=== PATIENT | female | born 1955 | race Caucasian/White ===

== ENCOUNTER → 2020-04-18 | Outpatient (CLI) | payer MEDICARE, MEDICAID ==
[~2020-04-18] MED LIST: RT-ALBUTEROL SULF 2.5 MG/3 ML PRE-MIX VIAL INH ONE
--- NOTE | 2020-04-18 15:34 | Diagnostic Imaging Report ---
PROCEDURE: CT chest without contrast. TECHNIQUE: Multiple contiguous axial images were obtained through the chest without the use of intravenous contrast. Auto Exposure Controls were utilized during the CT exam to meet ALARA standards for radiation dose reduction. INDICATION: Dyspnea and restrictive lung disease, asthma There is significant elevation of the right hemidiaphragm. There is a large hiatal hernia. There is atelectasis and/or scarring in the right infrahilar region, minimal atelectasis and/or scarring is also seen in the medial aspect of both lower lobes as well as the lingula. There is no evidence of focal mass or infiltrate. There is no significant pleural or pericardial fluid. No pathologically enlarged adenopathy is identified. There is mild coronary artery atherosclerotic calcification. IMPRESSION: Loss of volume in the right lung related to elevated diaphragm with resultant atelectasis and/or scarring in the right perihilar region. There is also moderately large hiatal hernia with mild coronary artery disease present. Dictated by: Dictated on workstation # [id number]
== END ==
LOC: RT 15:30
PROVIDERS: ATTEND Nurse Practitioner Family
DX: I25.10 Atherosclerotic heart disease of native coronary artery without angina pectoris (principal); K44.9 Diaphragmatic hernia without obstruction or gangrene; J44.9 Chronic obstructive pulmonary disease, unspecified
CPT/HCPCS: 71250; 94060; 94726; 94729

== ENCOUNTER → 2020-04-20 | Outpatient (CLI) | payer MEDICARE, MEDICAID | LOC: LAB FS 10:00 | PROVIDERS: ATTEND Nurse Practitioner Family | DX: Z01.812 Encounter for preprocedural laboratory examination (principal); J98.4 Other disorders of lung; G47.61 Periodic limb movement disorder; G47.10 Hypersomnia, unspecified; Z20.828 Contact with and (suspected) exposure to other viral communicable diseases | CPT/HCPCS: 87635 ==

== ENCOUNTER 2020-04-24 19:24 | Outpatient (CLI) | payer MEDICARE, MEDICAID | END 2020-04-25 04:17 | disposition home or self-care (01) | LOC: SLEEP 19:24 | PROVIDERS: ATTEND Nurse Practitioner Family | DX: G47.10 Hypersomnia, unspecified (principal); G47.61 Periodic limb movement disorder | CPT/HCPCS: 95810 ==

== ENCOUNTER 2020-06-11 15:26 | Outpatient (CLI) | payer MEDICARE, MEDICAID ==
[2020-06-15] MEDS ORDERED: INHALER HHN (06:46)
[2020-06-15] MEDS ORDERED: TRET15GE TP (06:46)
== END 2020-06-11 16:10 | disposition home or self-care (01) ==
LOC: SLEEP 15:26
PROVIDERS: ATTEND Nurse Practitioner Family
DX: G47.30 Sleep apnea, unspecified (principal); G47.50 Parasomnia, unspecified; G47.10 Hypersomnia, unspecified; G47.36 Sleep related hypoventilation in conditions classified elsewhere
CPT/HCPCS: G0399

== ENCOUNTER → 2020-06-12 | Outpatient (CLI) | payer MEDICARE, MEDICAID ==
[2020-06-13 06:28] LABS: RAGWEED RAST <0.10 kU/L (0.00-0.09)
[2020-06-13 06:29] LABS: ALTERNARIA MOLD RAST <0.10 kU/L (0.00-0.09)
== END ==
LOC: LAB 14:25
PROVIDERS: ATTEND Nurse Practitioner
DX: J45.998 Other asthma (principal)
CPT/HCPCS: 36415; 86003

== ENCOUNTER 2020-06-14 05:49 | Outpatient (RCR) | payer MEDICARE, MEDICAID ==
[2020-06-15] MEDS ORDERED: INHALER HHN (06:46)
[2020-06-15] MEDS ORDERED: TRET15GE TP (06:46)
== END 2020-06-14 12:37 | disposition home or self-care (01) ==
LOC: PREOP 05:49
PROVIDERS: ATTEND Internal Medicine Critical Care Medicine
DX: Z01.818 Encounter for other preprocedural examination (principal)

== ENCOUNTER → 2020-06-18 | Outpatient (CLI) | payer MEDICARE, MEDICAID ==
[~2020-06-18] MED LIST changes: +INHALER HHN; -RT-ALBUTEROL SULF 2.5 MG/3 ML PRE-MIX VIAL INH ONE; +TRET15GE TP
== END ==
LOC: LAB FS 10:30
PROVIDERS: ATTEND Internal Medicine Critical Care Medicine
DX: Z01.812 Encounter for preprocedural laboratory examination (principal); Z20.822 Contact with and (suspected) exposure to COVID-19
CPT/HCPCS: 87635

== ENCOUNTER 2020-06-20 06:57 | Day surgery (SDC) | payer MEDICARE, MEDICAID ==
[~2020-06-20] VITALS: Ht 162.6 cm; Wt 92.0 kg
[2020-06-20] VITALS (8 sets, daily range): BP systolic 104–160; BP diastolic 71–97
[2020-06-20] MEDS ORDERED: LACTATED RINGERS 1,000 ML IV ONE (07:02)
[2020-06-20] MEDS ORDERED: LACTATED RINGERS 1,000 ML IV STA (07:09)
[2020-06-20] MEDS ORDERED: proPOfol 200 MG/20 ML (DIPRIVAN) VIAL IV ONE (07:13)
[2020-06-20] MEDS ORDERED: MIDAZOLAM 5 MG/5 ML (VERSED) VIAL ONE (07:14)
[2020-06-20] MEDS ORDERED: ONDANSETRON 4 MG/2 ML (SDV) Z0FRAN ONE (07:14)
[2020-06-20] MEDS ORDERED: fentaNYL INJECTION 100 MCG/2 ML AMP ONE (07:14)
[2020-06-20] MEDS ORDERED: GLYCOPYRROLATE 0.2 MG/ML (ROBINUL) 2 ML VIAL ONE (07:14)
[2020-06-20] MEDS ORDERED: ROCURONIUM 10 MG/ML 5 ML SYRINGE IV ONE (07:15)
[2020-06-20] MEDS ORDERED: NEOSTIGMINE 3 MG/3 ML VIAL ONE (07:15)
[2020-06-20] MEDS ORDERED: LIDOCAINE PF 2% 5 ML (XYLOCAINE) VIAL ONE (07:15)
[2020-06-20] MEDS ORDERED: PHENYLEPHRINE 100 MCG/ML 10 ML (ANESTHESIA) SYR ONE (07:37)
--- NOTE | 2020-06-20 08:11 | Pulmonary Procedures ---
Pulmonary Procedures Date of Procedure Date of Service: Jun 20, 2020 Bronch Bronchoscopy with bronchoalveolar lavage (BAL), RLL washes and, transbronchial brushes of RLL using fleuroscopy. [place] of main stem bronchus Preop DX RLL atelectasis Postop DX: same - No endobronchial mass Complications: none After informed consent obtained and formal time out pt was sedated using Fentanyl and Versed. Bronchoscope was advanced through the nare and vocal cords. 1% lidocaine was used to anesthetize vocal cords, epiglottis, jimmy, and left/right main stem bronchus. An anatomical tour was undertaken down to the segmental bronchi bilaterally. No endobronchial lesions noted. Bronchoscopy with RLL bronchoalveolar lavage (BAL), RLL washes and, transbronchial brushes of RLL using fleuroscopy and [place] of main stem bronchus were obtained. Pt tolerated procedure well. No complications noted. Stat CXR is pending. JUANITO FRANCISCO DO Jun 20, 2020 08:11
[2020-06-20] MEDS ORDERED: SEVOFLURANE (ULTANE) 15 ML INHAL SOLN ONE (08:24)
--- NOTE | 2020-06-20 08:27 | Progress Note-Pre Operative ---
Pre-Operative Progress Note H&P Reviewed The H&P was reviewed, patient examined and no changes noted. Time Seen by Provider: 07:45 Date H&P Reviewed: Jun 20, 2020 Time H&P Reviewed: 07:45 Pre-Operative Diagnosis: atelectasis JUANITO FRANCISCO DO Jun 20, 2020 08:27
[2020-06-20] MEDS ORDERED: ONDANSETRON 4 MG/2 ML (SDV) Z0FRAN IVP PRN (08:30)
[2020-06-20] MEDS ORDERED: morphine INJ 10 MG/ML 1ML (SYR OR VIAL) IVP ONE (08:30)
[2020-06-20] MEDS ORDERED: MEPERIDINE (DEMEROL) INJ 50 MG/ML IVP ONE (08:30)
[2020-06-20] MEDS ORDERED: morphine INJ 10 MG/ML 1ML (SYR OR VIAL) ONE (08:39)
--- NOTE | 2020-06-20 08:42 | Diagnostic Imaging Report ---
INDICATION: POST BRONCHOSCOPY. TECHNIQUE: Single view chest 8:25 AM. CORRELATION STUDY: None FINDINGS: Asymmetrically elevated right diaphragm with right lung volume loss. Patchy consolidation right mid and basilar region. Also question slight parenchymal density left mid lung. No appreciable pneumothorax. Heart size within normal limits. There is however some irregular fullness about the right hilum. Vasculature overall appears slightly prominent. Abnormal density in the retrocardiac region favors probable prominent hiatal hernia. IMPRESSION: 1. Right lung volume loss with elevated right diaphragm. Patchy pulmonary parenchymal densities the right mid and lower lung field may be reflective of atelectasis and/or infiltrate. Less severe findings left mid lung field as well. 2. Vasculature appears slightly prominent. Some irregular fullness at the right hilum, nonspecific. 3. Probable prominent esophageal hernia. Dictated by: Dictated on workstation # [id number]
--- NOTE | 2020-06-20 09:06 | Diagnostic Imaging Report ---
INDICATION: History of restrictive lung disease, right lung volume loss. Undergoing bronchoscopy.. TECHNIQUE: Single intraprocedural image lower chest. DETAILS OF THE PROCEDURE: The hospital radiology department provided fluoroscopic imaging in support of an interventional procedure performed by Dr Carpio. A radiologist was not involved in the procedure. Please reference the operating provider's procedure note. FLUOROSCOPY TIME: 4.3 seconds. IMPRESSION: Single intraprocedure image centered over the lower chest demonstrates a bronchoscope to be projecting at the presumed infrahilar cardiophrenic angle. Dictated by: Dictated on workstation # [id number]
--- NOTE | 2020-06-20 10:21 | Anesthesia-General Post-Op ---
General Patient Condition Mental Status/LOC: Same as Preop Cardiovascular: Satisfactory Nausea/Vomiting: Absent Respiratory: Satisfactory Pain: Controlled Complications: Absent Post Op Complications Complications None Follow Up Care/Instructions Patient Instructions None needed. Anesthesia/Patient Condition Patient Condition Patient is doing well, no complaints, stable vital signs, no apparent adverse anesthesia problems. No complications reported per nursing. HAYDEN RAMIREZ CRNA Jun 20, 2020 10:21
[2020-06-20] MEDS ORDERED: LIDOCAINE JELLY 2% 6 ML SYRINGE MM ONE (14:30)
[2020-06-20] MEDS ORDERED: LIDOCAINE PF 1% 2 ML AMP IJ ONE (14:32)
[2020-06-20] MEDS ORDERED: LIDOCAINE PF 2% 2 ML (XYLOCAINE) VIAL IJ ONE (14:32)
== END 2020-06-20 09:45 | disposition home or self-care (01) ==
LOC: ENDO 06:57
PROVIDERS: ATTEND Internal Medicine Critical Care Medicine
DX: J98.11 Atelectasis (principal); F41.9 Anxiety disorder, unspecified; J44.9 Chronic obstructive pulmonary disease, unspecified; E66.9 Obesity, unspecified; Z68.34 Body mass index [BMI] 34.0-34.9, adult; Z79.51 Long term (current) use of inhaled steroids; Z88.0 Allergy status to penicillin; Z88.1 Allergy status to other antibiotic agents; Z88.8 Allergy status to other drugs, medicaments and biological substances; Z87.891 Personal history of nicotine dependence
CPT/HCPCS: 71045; 76000; 87015; 87070; 87101; 87116; 87205; 87206; 88112; 88312; 94640

== ENCOUNTER → 2020-09-14 | Outpatient (CLI) | payer MEDICARE, MEDICAID | LOC: CARD 14:30 | PROVIDERS: ATTEND Internal Medicine Cardiovascular Disease | DX: I25.10 Atherosclerotic heart disease of native coronary artery without angina pectoris (principal); I34.0 Nonrheumatic mitral (valve) insufficiency; I10 Essential (primary) hypertension | CPT/HCPCS: 93306 ==

== ENCOUNTER 2021-01-13 00:23 | Emergency (ER) | payer MEDICARE, MEDICAID ==
[2021-01-13 00:30] VITALS: BP 153/98
--- NOTE | 2021-01-13 00:32 | ED Integumentary General ---
General Stated Complaint: INFECTED RIGHT BIG TOE History of Present Illness Date Seen by Provider: Jan 13, 2021 Time Seen by Provider: 00:31 Initial Comments 65-year-old female presents with "infected right big toe" she reports that her symptoms have been going on for a couple weeks. That she noticed some mild purulent drainage in her toenail. She has some mild erythema to the big toe. Patient does not have any fevers chills nausea or vomiting. Allergies and Home Medications Allergies Coded Allergies: Penicillins (Verified Allergy, Unknown, 01/13/21) amoxicillin (Verified Allergy, Unknown, 01/13/21) Home Medications Tretinoin 15 Gm Gel..gram., 15 GM TP DAILY, (Reported) [Inhaler] , HHN PRN, (Reported) Patient Home Medication List Home Medication List Reviewed: Yes Review of Systems Review of Systems Constitutional: No chills, No fever Respiratory: No cough, No short of breath Cardiovascular: No chest pain, No palpitations Musculoskeletal: see HPI Skin: see HPI Psychiatric/Neurological: No Symptoms Reported Endocrine: No Symptoms Reported Past Npeaudw-Bkjlxw-Vdxyam Hx Immunizations Up To Date Tetanus Booster (TDap): Unknown Seasonal Allergies Seasonal Allergies: Yes Past Medical History Abdominal, Breast, Tonsillectomy Respiratory: Yes Pneumonia Currently Using CPAP: No Currently Using BIPAP: No Cardiac: No Female Reproductive Disorders: Denies Sexually Transmitted Disease: No HIV/AIDS: No Genitourinary: No Gastrointestinal: No Musculoskeletal: No Endocrine: No HEENT: No Cancer: No Psychosocial: No Integumentary: No Blood Disorders: No Physical Exam Vital Signs Vital Signs - First Documented 01/13/21 00:30 Temp 37.2 Pulse 85 Resp 18 B/P (MAP) 153/98 (116) Pulse Ox 97 O2 Delivery Room Air Capillary Refill : General Appearance: WD/WN, no apparent distress Cardiovascular: normal peripheral pulses, regular rate, rhythm Respiratory: no respiratory distress, no accessory muscle use Extremities: normal range of motion Neurologic/Psychiatric: alert, oriented x 3 Skin: other (Mild erythema swelling to right great toe. Mild purulent discharge underneath the great toe. Mild discoloration to the great toe nail) Skin Problem Location: lower extremities Skin Problem Character: erythema, warm Progress/Results/Core Measures Results/Orders Vital Signs/I&O 01/13/21 00:30 Temp 37.2 Pulse 85 Resp 18 B/P (MAP) 153/98 (116) Pulse Ox 97 O2 Delivery Room Air Progress Progress Note : Progress Note Patient will be prescribed Bactrim. She is to follow-up with her primary care provider for recheck and keep her appointment on . If symptoms do not improve, she may need to see a aquaculture farm manager for toenail removal. Departure Impression Primary Impression: Paronychia of great toe, right Disposition: 01 HOME, SELF-CARE Condition: Stable Departure-Patient Inst. Referrals: [facility] [place] ([place]/Family) Primary Care Physician Patient Instructions: Paronychia ED, Cellulitis and Erysipelas (Skin Infections) Add. Discharge Instructions: Keep your appointment with your primary care provider on for recheck of your infection If symptoms do not improve with antibiotic you may need to see a aquaculture farm manager for toenail removal Take antibiotic as directed Scripts Sulfamethoxazole/Trimethoprim (Bactrim Ds Tablet) 1 Each Tablet 1 EACH PO BID for 10 Days, #20 TAB Prov: CHUCKY ANDINO DO 01/13/21 CHUCKY ANDINO DO Jan 13, 2021 00:32
[2021-01-13] MEDS ORDERED: SULF1TAB38 PO (00:47)
== END 2021-01-13 00:51 | disposition home or self-care (01) ==
LOC: EDUNIT# 00:23 → ER FS 00:25
DX: L03.031 Cellulitis of right toe (principal)
CPT/HCPCS: 99282

== ENCOUNTER 2021-04-26 20:43 | Emergency (ER) | payer MEDICARE, MEDICAID ==
[~2021-04-26] VITALS: Ht 165 cm; Wt 91.6 kg
[~2021-04-26 20:43] MED LIST changes: +SULF1TAB38 PO
[2021-04-26 20:45] VITALS: BP 163/101
--- NOTE | 2021-04-26 20:57 | ED EENT ---
History of Present Illness General Stated Complaint: RIGHT EYE INJURY History of Present Illness Date Seen by Provider: Apr 26, 2021 Time Seen by Provider: 20:53 Initial Comments Patient was using a facial exfoliate her acid wash when she excellently had some splash into her right eye. Patient flushed it multiple times prior to coming to the ER. Patient complains of some burning. She denies any vision changes. She reports that happened just prior to arrival. Allergies and Home Medications Allergies Coded Allergies: Penicillins (Verified Allergy, Unknown, 01/13/21) amoxicillin (Verified Allergy, Unknown, 01/13/21) Patient Home Medication List Home Medication List Reviewed: Yes Sulfamethoxazole/Trimethoprim (Bactrim Ds Tablet) 1 Each Tablet, 1 EACH PO BID Prescribed by: CHUCKY ANDINO on 01/13/2146 Tretinoin (Retin-A) 15 Gm Gel..gram., 15 GM TP DAILY, (Reported) Entered as Reported by: JUAN CASTILLO on 06/15/20645 [Inhaler] , HHN PRN, (Reported) Entered as Reported by: JUAN CASTILLO on 06/15/2046 Review of Systems Review of Systems Constitutional: no symptoms reported Eyes: See HPI Ears: No Symptoms Reported Nose: no symptoms reported Mouth: no symptoms reported Throat: no symptoms reported Respiratory: no symptoms reported Cardiovascular: no symptoms reported Gastrointestinal: no symptoms reported Past Tfxclwk-Fzuqyd-Ouwtyf Hx Immunizations Up To Date Tetanus Booster (TDap): Unknown Seasonal Allergies Seasonal Allergies: Yes Past Medical History Abdominal, Breast, Tonsillectomy Respiratory: Yes Pneumonia Currently Using CPAP: No Currently Using BIPAP: No Cardiac: No Female Reproductive Disorders: Denies Sexually Transmitted Disease: No HIV/AIDS: No Genitourinary: No Gastrointestinal: No Musculoskeletal: No Endocrine: No HEENT: No Cancer: No Psychosocial: No Integumentary: No Blood Disorders: No Physical Exam Vital Signs Vital Signs - First Documented 04/26/21 20:45 Temp 36.4 Resp 98 B/P (MAP) 163/101 (121) Pulse Ox 96 O2 Delivery Room Air Height, Weight, BMI Height: '" Weight: lbs. oz. kg; 34.79 BMI Method: General Appearance: WD/WN, no apparent distress Eyes: right eye conjunctival inflammation, right eye corneal abrasion Nose: normal inspection Cardiovascular: normal peripheral pulses, regular rate, rhythm Respiratory: lungs clear, normal breath sounds Neurologic/Psychiatric: alert, normal mood/affect, oriented x 3 Skin: normal color, warm/dry Progress/Results/Core Measures Results/Orders My Orders Orders - CHUCKY ANDINO DO Tetracaine 0.5% Ophth Rosina Sdv (Tetracai (04/26/21 21:00) Fluorescein Strips ([id number]-[id number]-[id number]) (04/26/21 21:04) Rx-Tobramycin Ophth Oint (Rx-Tobrex Opht (04/26/21 21:30) Medications Given in ED Current Medications Medications Dose Ordered Sig/Demario Route Start Time Stop Time Status Last Admin Dose Admin Fluorescein Sodium 1 mg STK-MED ONCE .ROUTE 04/26/21 21:04 04/26/21 21:06 DC 04/26/21 21:20 1 MG Tetracaine HCl 1 OR 2 DROPS INTO AFFEC... ONCE ONCE OP 04/26/21 21:00 04/26/21 21:01 DC 04/26/21 21:21 1 ML Tobramycin Sulfate 1 gm ONCE ONCE OU 04/26/21 21:30 04/26/21 21:31 DC 04/26/21 21:35 1 GM Vital Signs/I&O 04/26/21 20:45 Temp 36.4 Resp 98 B/P (MAP) 163/101 (121) Pulse Ox 96 O2 Delivery Room Air Progress Progress Note : Progress Note Patient with may be minor chemical abrasion on fluorescein exam. Patient flushed her eye multiple times prior to arrival and I flushed multiple times while here in the ER. Patient with no vision changes. I recommend she follow- up with her contact lens manufacturer next week to have her eyes rechecked. She should return to the ER or call them over the weekend if symptoms worsen Departure Impression Primary Impression: Keratoconjunctivitis of right eye Disposition: HOME, SELF-CARE Condition: Stable Departure-Patient Inst. Referrals: [facility] [place] ([place]/Family) Primary Care Physician Patient Instructions: How to Use Eye Drops and Eye Ointment ED, Chemical Eye Injury (DC) Add. Discharge Instructions: Please call your eye doctor Thursday morning to arrange a repeat exam Return to the ER as needed for worsening symptoms CHUCKY ANDINO DO Apr 26, 2021 20:57
[2021-04-26] MEDS ORDERED: TETRACAINE 0.5% OPHTH SOLN 4 ML BTL (SINGLE DOSE ONLY) OP ONE (21:00)
[2021-04-26] MEDS ORDERED: FLUORESCEIN (FLUOR-I-STRIPS) 1 MG STRP ONE (21:04)
[2021-04-26] MEDS ORDERED: RX-TOBRAMYCIN (TOBREX) 0.3% OP OINT 3.5 GM TUBE OU ONE (21:30)
== END 2021-04-26 21:36 | disposition home or self-care (01) ==
LOC: EDUNIT# 20:43 → ER FS 20:45
DX: H16.201 Unspecified keratoconjunctivitis, right eye (principal)
CPT/HCPCS: 99282

== ENCOUNTER 2021-07-21 20:26 | Emergency (ER) | payer MEDICARE, MEDICAID ==
[~2021-07-21] VITALS: Ht 64 cm; Wt 89.8 kg
--- NOTE | 2021-07-21 20:29 | ED Head Injury ---
General Stated Complaint: FALL; HEAD INJ History of Present Illness Date Seen by Provider: Jul 21, 2021 Time Seen by Provider: 20:29 Initial Comments 65-year-old female presents following a fall. Patient reports she slipped in the mud fell backwards and hit her head on a metal fence. Patient reports that happened back approximately 3 hours ago. Patient did not lose consciousness. She denies any nausea, vomiting, vision changes. Patient comes in because she "did not want to fall asleep and I have a head bleed" Allergies and Home Medications Allergies Coded Allergies: Penicillins (Verified Allergy, Unknown, 01/13/21) amoxicillin (Verified Allergy, Unknown, 01/13/21) Patient Home Medication List Home Medication List Reviewed: Yes Sulfamethoxazole/Trimethoprim (Bactrim Ds Tablet) 1 Each Tablet, 1 EACH PO BID Prescribed by: CHUCKY ANDINO on 01/13/21 004 Tretinoin (Retin-A) 15 Gm Gel..gram., 15 GM TP DAILY, (Reported) Entered as Reported by: JUAN CASTILLO on 06/15/20 0646 [Inhaler] , HHN PRN, (Reported) Entered as Reported by: JUAN CASTILLO on 06/15/20 0646 Review of Systems Review of Systems Constitutional: No dizziness Eyes: No Symptoms Reported Ears, Nose, Mouth, Throat: no symptoms reported Respiratory: no symptoms reported Cardiovascular: no symptoms reported Gastrointestinal: no symptoms reported Genitourinary: no symptoms reported Musculoskeletal: no symptoms reported Skin: no symptoms reported Psychiatric/Neurological: No Symptoms Reported Past Qmgopib-Gbbppd-Ftzidv Hx Immunizations Up To Date Tetanus Booster (TDap): Unknown Seasonal Allergies Seasonal Allergies: Yes Past Medical History Abdominal, Breast, Tonsillectomy Respiratory: Yes Pneumonia Currently Using CPAP: No Currently Using BIPAP: No Cardiac: No Female Reproductive Disorders: Denies Sexually Transmitted Disease: No HIV/AIDS: No Genitourinary: No Gastrointestinal: No Musculoskeletal: No Endocrine: No HEENT: No Cancer: No Psychosocial: No Integumentary: No Blood Disorders: No Physical Exam Vital Signs Vital Signs - First Documented 07/21/21 20:32 Pulse 96 Resp 18 B/P (MAP) 152/98 (116) Pulse Ox 97 O2 Delivery Room Air Capillary Refill : Height, Weight, BMI Height: '" Weight: lbs. oz. kg; 33.00 BMI Method: General Appearance: WD/WN, no apparent distress HEENT: PERRL/EOMI, other (Mild tenderness to palpation posterior scalp, no noticeable hematoma crepitus or injury) Cardiovascular: normal peripheral pulses, regular rate, rhythm Respiratory: lungs clear, normal breath sounds Gastrointestinal: non tender, soft Extremities: normal range of motion, non-tender Psychiatric: alert, oriented x 3, depressed affect Cra[place] Nerves: normal hearing, normal speech, PERRL Coordination/Gait: normal gait Motor/Sensory: no motor deficit, no sensory deficit, no pronator drift Skin: normal color, warm/dry Progress/Results/Core Measures Results/Orders My Orders Orders - CHUCKY ANDINO DO Ct Head Wo (07/21/21 20:32) Vital Signs/I&O 07/21/21 20:32 Pulse 96 Resp 18 B/P (MAP) 152/98 (116) Pulse Ox 97 O2 Delivery Room Air Progress Progress Note : Progress Note Patient with a negative head CT. Patient likely a mild concussion with minor head injury. Patient given return precautions. She is Tylenol and ibuprofen as needed. Patient stable discharge Departure Impression Primary Impression: Concussion without loss of consciousness Qualified Codes: S06.0X0A - Concussion without loss of consciousness, initial encounter Additional Impression: Minor head injury without loss of consciousness Qualified Codes: S09.90XA - Unspecified injury of head, initial encounter Disposition: 01 HOME, SELF-CARE Condition: Stable Departure-Patient Inst. Referrals: [facility] ([place]P/Family) Primary Care Physician Patient Instructions: Closed Head Injury (DC), Concussion, Adult ED Add. Discharge Instructions: Tylenol or ibuprofen as needed for pain and discomfort Get plenty of rest Follow-up with your primary care provider as an CHUCKY ANDINO DO Jul 21, 2021 20:29
--- NOTE | 2021-07-21 20:54 | Diagnostic Imaging Report ---
PROCEDURE: CT head without contrast. TECHNIQUE: Multiple contiguous axial images were obtained through the brain without the use of intravenous contrast. Auto Exposure Controls were utilized during the CT exam to meet ALARA standards for radiation dose reduction. INDICATION: Head injury with pain. FINDINGS: Ventricles and sulci are within normal limits for size. No hemorrhage is identified. There is no abnormal mass effect or shift of midline structures. There is atherosclerotic calcification within the distal internal carotid and vertebral arteries. Calvarium is intact and the visualized paranasal sinuses are clear. IMPRESSION: No acute abnormality. Dictated by: Dictated on workstation # [id number]
[2021-07-21 21:00] VITALS: BP 152/98
== END 2021-07-21 21:00 | disposition home or self-care (01) ==
LOC: EDUNIT# 20:26 → ER FS 20:28
DX: S06.0X0A Concussion without loss of consciousness, initial encounter (principal); W01.198A Fall on same level from slipping, tripping and stumbling with subsequent striking against other object, initial encounter
CPT/HCPCS: 70450